=== PATIENT | female | born 1965 | race Caucasian/White ===

== ENCOUNTER 2024-11-04 19:23 | Emergency (ER) | payer MEDICAID, SELFPAY ==
[2024-11-04 19:24] VITALS: BMI 27.8
[2024-11-04 20:16] VITALS: BP 171/92; PULSE 102; RESP 18; TEMP 36.8; O2SAT 97
--- NOTE | 2024-11-04 20:24 | XR_ITS ---
Examination: PA chest single view FINDINGS: Upright PA chest single view Date and time: November 04, 20242052 hours INDICATIONS: Shortness of breath 2 days. FINDINGS: Mild opacity left base Normal heart size Right lung clear IMPRESSION: Atelectasis versus mild pneumonia left base, clinical correlation advised
--- NOTE | 2024-11-04 20:24 | XR_ITS ---
Examination: Venous duplex lower extremity sonogram, bilateral. Date and time of exam: November 04, 2024 2138 hours, INDICATIONS: swelling in the left leg 1 week, history left common femoral DVT occlusive on venous Doppler April 05, 2024 Technique: Multiple sonographic images of the deep venous system have been obtained. B-mode/2-D grayscale imaging of vascular structures and Doppler spectral analysis (waveforms) and color performed Both legs are examined. Findings: Negative right lower extremity system for DVT Positive for DVT involving the common femoral and superficial left greater saphenous veins IMPRESSION: Positive for DVT involving left common femoral and superficial left greater saphenous veins
--- NOTE | 2024-11-04 20:24 | EKG_ITS ---
[facility] Test Date: 2024-11-04 Pat Name: JARET TOLLIVER Department: Room: - Gender: Female Journal Clerk: : 1965 Requested By: Jace Palomo Order Number: [id number] Reading MD: Jace Palomo Measurements Intervals [place] Rate: 94 P: 62 CT: 141 QRS: 78 QRSD: 84 T: 51 QT: 353 QTc: 441 Interpretive Statements SINUS RHYTHM Compared to ECG 04/04/2024 23:42:58 Sinus tachycardia no longer present /store/S0/[id number].pdf
--- NOTE | 2024-11-04 20:29 | PD.EDEXREM ---
ED Extremity Problem RME/HPI General Chief complaint: Extremity Injury, Lower Stated complaint: L LEG PAIN AND SWELLING Time Seen by Provider: 11/04/24 20:24 Arrival date/time: 11/04/24 19:23 59F with history of drug use, HTN, COPD, MASH, CAD, DDD, and extensive occlusive DVT of LLE (s/p thrombectomy and IVC filter placed at [place]), presents to ED with 2 days of LLE pain and swelling. Patient also previously had a GI bleed episode where patient was switched from Xarelto to Eliquis. Patient ran out of Eliquis several months ago and has not been taking any because she didn't have access. Patient also expresses minimal SOB, but no worse than usual due to her COPD. Limitations: no limitations Related Data Previous Rx's ?Medication ?Instructions ?Recorded lisinopril 10 mg tablet 10 mg PO QDAY #30 tabs 12/02/23 apixaban 5 mg (74 tabs) tablets in 5 mg PO BID DVT #74 tabs 04/08/24 a dose pack (Eliquis DVT-PE Treat 30D Start) apixaban 5 mg (74 tabs) tablets in 5 mg PO BID #74 tabs 11/04/24 a dose pack (Eliquis DVT-PE Treat 30D Start) Allergies Allergy/AdvReac Type Severity Reaction Status Date / Time codeine Allergy Verified 11/04/24 19:29 fluoxetine (From Prozac) Allergy Verified 11/04/24 19:29 risperidone (From Risperdal) Allergy Verified 11/04/24 19:29 Review of Systems Review of Systems Systems Reviewed: All systems reviewed, normal except as documented Constitutional Constitutional: Reports system reviewed and no additional complaints, except as documented, Denies fever(s) and Denies headache(s) ENT Ears, Nose, Mouth, and Throat: Denies disequilibrium and Denies headache(s) Cardiovascular Cardiovascular: Reports system reviewed and no additional complaints, except as documented, Denies chest pain and Denies dyspnea Respiratory Respiratory: Reports system reviewed and no additional complaints, except as documented, Denies cough and Denies dyspnea Gastrointestinal Gastrointestinal: Reports system reviewed and no additional complaints, except as documented, Denies abdominal pain, Denies nausea and Denies vomiting Integumentary/Breasts Skin/Breast: Reports as per HPI and Reports skin swelling Neurologic Neurologic: Reports system reviewed and no additional complaints, except as documented, Denies confusion, Denies disequilibrium and Denies headache(s) Psychiatric Psychiatric: Denies confusion Past Medical History Past Medical History NEUROLOGIC: Positive Head Trauma; Negative Seizures CARDIAC: Positive Myocardial Infarction, Hypercholesterolemia and Hypertension; Negative Cardiac Disorders or Congestive Heart Failure RESPIRATORY: Positive Chronic Obstructive Pulmonary Disease (COPD) and Asthma GASTROINTESTINAL: Positive Gastrointestinal Disorders and Gastroesophageal Reflux Disease GENITOURINARY: Negative Renal Disease MUSCULOSKELETAL: Positive Musculoskeletal Disorders, Arthritis and Degenerative Disk Disease ENT: Positive Head Trauma ENDOCRINE: Positive Endocrine Disorders; Negative Diabetes Mellitus Type 1 or Diabetes Mellitus Type 2 HEMATOLOGIC: Negative Sickle Cell Disease OTHER HISTORY: Positive Blood Transfusions; Negative Blood Transfusion Reaction or Anesthesia Reactions Social History SMOKING STATUS: Current every day smoker SECOND HAND EXPOSURE: Yes ED Exam General Limitations: Present no limitations General appearance: Present alert and in no apparent distress Head Head exam: Present atraumatic Eye Eye exam: Present normal appearance, PERRL and EOMI ENT ENT exam: Present normal exam, normal oropharynx and mucous membranes moist Neck Neck exam: Present normal inspection, full ROM and trachea midline Chest Chest inspection: Present normal inspection and symmetric chest wall rise Respiratory Respiratory exam: Present normal lung sounds bilaterally Cardiovascular Cardiovascular exam: Present regular rate, normal rhythm and normal heart sounds Abdominal Exam Abdominal exam: Present soft and normal bowel sounds Extremities Exam Extremities exam: Present full ROM Expanded Lower Extremity Exam Hip/Pelvis exam: Present full ROM (L) and swelling Upper leg exam: Present full ROM and swelling Knee exam: Present full ROM and swelling Lower leg exam: Present full ROM and swelling Ankle exam: Present full ROM and swelling Back Exam Back exam: Present normal inspection and full ROM Neurological Exam Neurological exam: Present alert, oriented X3 and CN II-XII intact Psychiatric Psychiatric exam: Present normal affect and normal mood Skin Skin exam: Present warm, dry, intact and normal color Course Quality Measures none Orders Category Date Time Status EKG (ED ONLY) *Do not use* NOW Care 11/04/24 20:26 Completed EKG (ED Only) Stat Exams 11/04/24 20:24 Draft US venous doppler LE BI Stat Exams 11/04/24 20:24 Completed XR chest 1V portable Stat Exams 11/04/24 20:24 Completed BNP [B-Type Natriuretic Peptide] Stat Lab 11/04/24 21:10 Completed CBC Stat Lab 11/04/24 21:10 Completed CMP [Comprehensive Metabolic Panel] Stat Lab 11/04/24 21:10 Completed INR [Prothrombin Time with INR] Stat Lab 11/04/24 21:10 Completed PTT [Partial Thromboplastin Time] Stat Lab 11/04/24 21:10 Completed Troponin I Stat Lab 11/04/24 21:10 Completed Apixaban [Eliquis] Med 11/04/24 23:18 Discontinued 10 mg PO X1 ONE Vital Signs Vital signs: Vital Signs Temperature 98.3 F 11/04/24 20:16 Pulse Rate 102 H 11/04/24 20:16 Respiratory Rate 18 11/04/24 20:16 Blood Pressure 171/92 H 11/04/24 20:16 Pulse Oximetry (%) 97 11/04/24 20:16 Oxygen Delivery Method Room Air 11/04/24 20:16 O2 at 97% on RA and WNLs Extremity Problem MDM Narrative MDM Narrative:: 59F with history of drug use, HTN, COPD, MASH, CAD, DDD, and extensive occlusive DVT of LLE (s/p thrombectomy and IVC filter placed at [place]), presents to ED with 2 days of LLE pain and swelling. Patient also previously had a GI bleed episode where patient was switched from Xarelto to Eliquis. Patient ran out of Eliquis several months ago and has not been taking any because she didn't have access. Patient also expresses minimal SOB, but no worse than usual due to her COPD. Physical exam reveals normal WOB and clear lungs. Mildly swollen LLE. Some swelling around pelvic area around skin. Patient is afebrile, calm, and alert. EKG is NSR. CXR possible PNA, but patient denies cough. Normal trop and BNP. CBC unremarkable. CMP unremarkable. Coags normal. US 2 DVTs on LLE. Meds given. Patient data External records reviewed:: [facility] previous records Clinical information provided by:: patient Social determinants that could affect healthcare access:: alcohol use Patient has the following chronic illnesses:: drug use, HTN, COPD, MASH, CAD, DDD, and extensive occlusive DVT of LLE How is presenting disease/condition affected by chronic disease/condition?: caused by Evaluation data The following diagnostics were reviewed and interpreted by me:: lab results, radiology exam(s) and EKG tracing(s) Lab and/or radiology exams considered but not ordered:: ordered Interpretation Summary: above Medications / Prescriptions Medications or Prescriptions considered but not ordered:: ordered Medication administrations:: Medication Administration History Discontinued Medications Apixaban (Apixaban 2.5 Mg Tablet) 10 mg PO X1 ONE Stop: 11/04/24 23:19 Last Admin: 11/04/24 23:39 Dose: 10 mg Documented By: RADHA above Consultations Consultation(s) initiated? (list below): No Diagnosis Extremity Problem Differential Diagnosis: herpes zoster, gout, cellulitis, superficial thrombophlebitis, deep venous thrombosis of upper extremity, lower extremity edema and deep vein thrombosis of lower extremity Most likely diagnosis given after review of the tests above:: DVT Admission Indicated Admission indicated?: not indicated Admission Request Was there a request for admission?: No Disposition Plan Disposition Plan: Discharge Discharge Attestation Discharge Attestation: The patient and all family members were given an opportunity to ask questions and understood the discharge instructions. Discharge instructions specifically effects, indications for sooner follow up or return to the emergency department, and the expected course of current diagnosis. Patient condition: Stable Discharge Plan Plan Patient Disposition: HOME (Self Care) Discharge Disposition comment: Stable Prescriptions/Referrals Prescriptions/Med Rec: New Eliquis DVT-PE Treat 30D Start 5 mg (74 tabs) tablets,dose pack 5 mg PO BID Qty: 74 0RF Rx Instructions: 10 mg twice daily for 7 days followed by 5 mg twice daily. No Action lisinopril 10 mg tablet 10 mg PO QDAY Qty: 30 0RF Eliquis DVT-PE Treat 30D Start 5 mg (74 tabs) tablets,dose pack 5 mg PO BID Qty: 74 0RF Rx Instructions: ELIQUIS 10 mg PO twice daily for the first 7 days of therapy. After 7 days recommended dose is 5 mg taken orally twice daily. Referrals: No Primary/Family,Physician [Primary Care Provider] - In 1 week Problem List Clinical Impression: DVT (deep venous thrombosis) Patient/Caregiver Discharge Instructions Education Materials: ED Deep Vein Thrombosis (DVT) Additional Instructions: Please follow-up with PCP within 24-48 hours and return immediately if symptoms worsen. Print Language: Rwandan Stand Alone Forms: Patient Portal Info Letter SONU/YOHANNES Supervising Physician SONU/YOHANNES Supervising Physician: Dr. Galindo
[2024-11-04 21:38] LABS: Basophils # (Auto) 0.1 Thou/mm3 (0.0-0.2); Basophils % (Auto) 1 % (0-2.5); Eosinophils # (Auto) 0.2 Thou/mm3 (0.0-0.5); Eosinophils % (Auto) 2 % (0-10); Hematocrit 42.9 % (36.0-46.0); Immature Granulocytes % (Auto) 1 % (0-0); Immature Granulocytes Auto 0.08 Thou/mm3 (0.00-0.00); Lymphocytes # (Auto) 2.5 Thou/mm3 (1.0-4.8); Lymphocytes % (Auto) 30 % (10-50); Mean Corpuscular HGB Conc 32.6 g/dl (31.0-37.0); Mean Corpuscular Hemoglobin 29.5 pg (25.0-35.0); Mean Corpuscular Volume 91 fL (80-100); Monocytes # (Auto) 0.8 Thou/mm3 (0.0-0.8); Monocytes % (Auto) 9 % (0-12); Neutrophils # (Auto) 4.7 Thou/mm3 (1.8-7.7); Neutrophils % (Auto) 57 % (37-80); Nucleated Red Blood Cell % 0 /100 WBC (0); Platelet Count 297 Thou/mm3 (140-440); RDW Standard Deviation 43.7 fL (36.4-46.3); Red Blood Count 4.74 Miln/mm3 (4.00-5.20); White Blood Count 8.3 Thou/mm3 (3.6-11.0)
[2024-11-04 21:54] LABS: Partial Thromboplastin Time 24.3 Seconds (22.0-36.0); Prothrombin Time 10.9 Seconds (9.0-12.2)
[2024-11-04 21:57] LABS: B-Type Natriuretic Peptide 43 pg/mL (0-100)
[2024-11-04 21:58] LABS: Alanine Aminotransferase 13 U/L (10-49); Albumin, Serum 4.4 gm/dL (3.4-4.8); Albumin/Globulin Ratio 1.6 (1.2-2.2); Alkaline Phosphatase 102 U/L (46-116); Anion Gap 10 (7-16); BUN/Creatinine Ratio 13 Ratio (12-20); Bilirubin,Total 0.3 mg/dL (0.3-1.2); Blood Urea Nitrogen 10 mg/dL (9-23); Calcium 9.3 mg/dL (8.3-10.6); Calcium (Corrected) 9.3 mg/dL (8.5-10.1); Carbon Dioxide 27.3 mMol/L (20.0-31.0); Chloride 108 mMol/L (98-107); Creatinine (Component) 0.8 mg/dL (0.6-1.3); Estimated Creatinine Clearance 70.7 mL/min (>60); Globulin 2.8 gm/dL (2.3-3.5); Glucose 83 mg/dL (74-106); Osmolality,Calculated 286 (275-295); Potassium 3.8 mMol/L (3.4-5.1); Sodium 145 mMol/L (136-145); Total Protein 7.2 gm/dL (5.7-8.2); Troponin I < 0.002 ng/mL (0.0-0.045); eGFR > 60 See Note
[2024-11-04 22:15] VITALS: BP 174/114; BP 175/117; PULSE 95; RESP 20; TEMP 36.6; O2SAT 99
[2024-11-04] MEDS: APIXABAN 2.5 MG TABLET 10 MG PO (23:39)
[2024-11-05 00:24] VITALS: BP 137/82; PULSE 78
== END 2024-11-05 00:25 | disposition home or self-care (01) ==
PROVIDERS: Physician Assistant; Emergency Provider Emergency Medicine
DX: I82.412 Acute embolism and thrombosis of left femoral vein (principal); I82.812 Embolism and thrombosis of superficial veins of left lower extremity; R06.02 Shortness of breath; M79.89 Other specified soft tissue disorders; I10 Essential (primary) hypertension; I25.10 Atherosclerotic heart disease of native coronary artery without angina pectoris; F17.210 Nicotine dependence, cigarettes, uncomplicated; E78.00 Pure hypercholesterolemia, unspecified; I25.2 Old myocardial infarction
CPT/HCPCS: 36415; 71045; 80053; 83880; 84484; 85025; 85610; 85730; 93005; 93970; 99284; A9270

== ENCOUNTER 2025-05-23 02:06 | Observation (INO) | payer MEDICAID, SELFPAY ==
[2025-05-23] VITALS (11 sets, daily range): BP systolic 106–132; BP diastolic 59–88; PULSE 18–108; RESP 16–99; TEMP 36.1–37.1; O2SAT 94–100; BMI 26.0
--- NOTE | 2025-05-23 02:21 | XR_ITS ---
Examination: Duplex scan of the lower extremity, unilateral left Date and time of exam: 05/23/2025 at 3:27 a.m. CLINICAL HISTORY: Previous history of venous clots, now edema, history of liver cancer, pain Technique: Duplex scan of the extremity veins using B-mode/grayscale imaging and Doppler spectral analysis and color flow Attention is directed to internal echogenicity, compression and augmentation involving these veins, color flow assessment, spectral analysis Findings: The left femoral vein and saphenous vein are slightly swollen and show no compressibility, and no augmentation echogenic thrombi are seen within these veins The popliteal vein likewise shows no compressibility or augmentation, echogenic thrombi are seen, and the vein is slightly swollen. The posterior tibial vein does show compressibility but there is no augmentation and echogenic thrombi are noted. Impression: 1. This study is positive for widespread, extensive deep venous thrombophlebitis throughout most of the deep venous system in the left lower extremity.
--- NOTE | 2025-05-23 02:33 | PD.EDRME ---
Rapid Medical Screening Exam RME Arrival date/time: 05/23/25 02:06 This is a case of 59-year-old female with history of drug use, HTN, COPD, MASH, CAD, DDD, and extensive occlusive DVT of LLE (s/p thrombectomy and IVC filter placed at [place] came in in the emergency room due to left lower extremity pain and swelling patient is out of his blood thinner worsening of the symptoms this patient decided to start consult her in the emergency room Chief Complaint: Extremity Problem,Nontraumatic Time Seen by Provider: 05/23/25 02:21 Vital signs: Vital Signs Temperature 98.3 F 05/23/25 02:25 Pulse Rate 108 H 05/23/25 02:25 Respiratory Rate 19 05/23/25 02:25 Blood Pressure 116/79 05/23/25 02:25 Pulse Oximetry (%) 96 05/23/25 02:25 Oxygen Delivery Method Room Air 05/23/25 02:25 Exam: Moderate tenderness on the left lower extremities with mild swelling no calf tenderness negative Coronel signs negative Homans signs Clinical Impression: Left lower extremity pain rule out DVT
[2025-05-23 03:41] LABS: Basophils # (Auto) 0.1 Thou/mm3 (0.0-0.2); Basophils % (Auto) 1 % (0-2.5); Eosinophils # (Auto) 0.2 Thou/mm3 (0.0-0.5); Eosinophils % (Auto) 2 % (0-10); Hematocrit 39.7 % (36.0-46.0); Hemoglobin 12.7 g/dL (12.0-16.0); Immature Granulocytes Auto 0.06 Thou/mm3 (0.00-0.00); Lymphocytes # (Auto) 2.4 Thou/mm3 (1.0-4.8); Lymphocytes % (Auto) 22 % (10-50); Mean Corpuscular HGB Conc 32.0 g/dl (31.0-37.0); Mean Corpuscular Hemoglobin 29.0 pg (25.0-35.0); Mean Corpuscular Volume 91 fL (80-100); Monocytes # (Auto) 1.2 Thou/mm3 (0.0-0.8); Monocytes % (Auto) 11 % (0-12); Neutrophils # (Auto) 6.8 Thou/mm3 (1.8-7.7); Neutrophils % (Auto) 63 % (37-80); Nucleated Red Blood Cell # 0.00 Thou/mm3 (0.00-0.00); Nucleated Red Blood Cell % 0 /100 WBC (0); Platelet Count 213 Thou/mm3 (140-440); RDW Standard Deviation 44.3 fL (36.4-46.3); Red Blood Count 4.38 Miln/mm3 (4.00-5.20); White Blood Count 10.8 Thou/mm3 (3.6-11.0)
[2025-05-23 03:59] LABS: INR 1.0 (0.9-1.3); Partial Thromboplastin Time 25.3 Seconds (22.0-36.0); Prothrombin Time 11.0 Seconds (9.0-12.2)
[2025-05-23 04:13] LABS: Alanine Aminotransferase 8 U/L (10-49); Albumin, Serum 4.4 gm/dL (3.4-4.8); Albumin/Globulin Ratio 1.5 (1.2-2.2); Alkaline Phosphatase 89 U/L (46-116); Anion Gap 9 (7-16); Aspartate Amino Transferase 13 U/L (0-34); BUN/Creatinine Ratio 16 Ratio (12-20); Bilirubin,Total 0.5 mg/dL (0.3-1.2); Blood Urea Nitrogen 14 mg/dL (9-23); Calcium 9.2 mg/dL (8.3-10.6); Calcium (Corrected) 9.2 mg/dL (8.5-10.1); Carbon Dioxide 29.4 mMol/L (20.0-31.0); Chloride 106 mMol/L (98-107); Creatinine (Component) 0.9 mg/dL (0.6-1.3); Estimated Creatinine Clearance 61.0 mL/min (>60); Globulin 2.9 gm/dL (2.3-3.5); Glucose 107 mg/dL (74-106); Osmolality,Calculated 287 (275-295); Potassium 3.6 mMol/L (3.4-5.1); Sodium 144 mMol/L (136-145); Total Protein 7.3 gm/dL (5.7-8.2); eGFR > 60 See Note
--- NOTE | 2025-05-23 04:25 | PD.EDEXREM ---
ED Extremity Problem RME/HPI General Chief complaint: Extremity Problem,Nontraumatic Stated complaint: BLOOD CLOTS TO LEFT LEG Time Seen by Provider: 05/23/25 02:21 Arrival date/time: 05/23/25 02:06 Rapid Medical Screening Exam [facility] Arrival date/time: 05/23/25 02:06 This is a case of 59-year-old female with history of drug use, HTN, COPD, MASH, CAD, DDD, and extensive occlusive DVT of LLE (s/p thrombectomy and IVC filter placed at [place] came in in the emergency room due to left lower extremity pain and swelling patient is out of his blood thinner worsening of the symptoms this patient decided to start consult her in the emergency room Limitations: no limitations RME / HPI RME / HPI Narrative: 05/23/25 02:06 This is a case of 59-year-old female with history of drug use, HTN, COPD, MASH, CAD, DDD, and extensive occlusive DVT of LLE (s/p thrombectomy and IVC filter placed at [place] came in in the emergency room due to left lower extremity pain and swelling patient is out of his blood thinner worsening of the symptoms this patient decided to start consult her in the emergency room Exam: Moderate tenderness on the left lower extremities with mild swelling no calf tenderness negative Coronel signs negative Homans signs Impression: Left lower extremity pain rule out DVT Related Data Previous Rx's ?Medication ?Instructions ?Recorded lisinopril 10 mg tablet 10 mg PO QDAY #30 tabs 12/02/23 apixaban 5 mg (74 tabs) tablets in 5 mg PO BID DVT #74 tabs 04/08/24 a dose pack (Eliquis DVT-PE Treat 30D Start) apixaban 5 mg (74 tabs) tablets in 5 mg PO BID #74 tabs 11/04/24 a dose pack (Eliquis DVT-PE Treat 30D Start) Allergies Allergy/AdvReac Type Severity Reaction Status Date / Time bee venom protein (honey bee) Allergy Difficulty Verified 05/23/25 02:06 Breathing codeine Allergy Verified 05/23/25 02:06 fluoxetine (From Prozac) Allergy Verified 05/23/25 02:06 risperidone (From Risperdal) Allergy Verified 05/23/25 02:06 Review of Systems Review of Systems Systems Reviewed: All systems reviewed, normal except as documented Constitutional Constitutional: Reports system reviewed and no additional complaints, except as documented and Reports as per HPI Cardiovascular Cardiovascular: Reports system reviewed and no additional complaints, except as documented and Reports as per HPI Respiratory Respiratory: Reports system reviewed and no additional complaints, except as documented and Reports as per HPI Gastrointestinal Gastrointestinal: Reports system reviewed and no additional complaints, except as documented and Reports as per HPI Musculoskeletal Musculoskeletal: Reports system reviewed and no additional complaints, except as documented and Reports as per HPI Neurologic Neurologic: Reports system reviewed and no additional complaints, except as documented and Reports as per HPI Past Medical History Past Medical History NEUROLOGIC: Positive Head Trauma; Negative Seizures CARDIAC: Positive Myocardial Infarction, Hypercholesterolemia and Hypertension; Negative Cardiac Disorders or Congestive Heart Failure RESPIRATORY: Positive Chronic Obstructive Pulmonary Disease (COPD) and Asthma GASTROINTESTINAL: Positive Gastrointestinal Disorders and Gastroesophageal Reflux Disease GENITOURINARY: Negative Renal Disease MUSCULOSKELETAL: Positive Musculoskeletal Disorders, Arthritis and Degenerative Disk Disease ENT: Positive Head Trauma ENDOCRINE: Positive Endocrine Disorders; Negative Diabetes Mellitus Type 1 or Diabetes Mellitus Type 2 HEMATOLOGIC: Negative Sickle Cell Disease OTHER HISTORY: Positive Blood Transfusions; Negative Blood Transfusion Reaction or Anesthesia Reactions Social History SMOKING STATUS: Current every day smoker SECOND HAND EXPOSURE: Yes ED Exam General Limitations: Present no limitations General appearance: Present alert, in no apparent distress and other (Patient is awake alert oriented not in distress nontoxic looking well-hydrated well nourisehed) Head Head exam: Present atraumatic, normocephalic and normal inspection Eye Eye exam: Present normal appearance, PERRL and EOMI ENT ENT exam: Present normal exam, normal oropharynx and mucous membranes moist Neck Neck exam: Present normal inspection, full ROM and trachea midline Chest Chest inspection: Present normal inspection and symmetric chest wall rise Respiratory Respiratory exam: Present normal lung sounds bilaterally; Absent respiratory distress, wheezes, stridor, accessory muscle use or prolonged expiratory phase Cardiovascular Cardiovascular exam: Present regular rate, normal rhythm and normal heart sounds; Absent bradycardia, tachycardia, irregular rhythm, systolic murmur or diastolic murmur Abdominal Exam Abdominal exam: Present soft and normal bowel sounds; Absent distention, tenderness, guarding, rebound, rigidity, diminished bowel sounds, hyperactive bowel sounds, hypoactive bowel sounds or organomegaly Extremities Exam Extremities exam: Present normal inspection and full ROM Expanded Lower Extremity Exam Lower leg exam: Present tenderness, swelling, Achilles tendon intact and other (Positive calf tenderness negative Coronel sign ROM is limited due to pain pulses are full and equal capillary refill less than 2 seconds sensory intact); Absent abrasion, laceration, ecchymosis, deformity, crepitus, dislocation, erythema, palpable cord or Homans' sign Back Exam Back exam: Present normal inspection and full ROM Neurological Exam Neurological exam: Present alert, oriented X3, CN II-XII intact, normal gait (Unable to examine gait due to pain on the left lower extremety) and reflexes normal; Absent motor sensory deficit Psychiatric Psychiatric exam: Present normal affect and normal mood Skin Skin exam: Present warm, dry, intact and normal color Course Quality Measures VTE prophylaxis Orders Category Date Time Status COVID-19 Screening Questionnaire NOW Care 05/23/25 04:24 Active Decision to Admit X1 Care 05/23/25 04:23 Active US venous doppler LE LT Stat Exams 05/23/25 02:21 Taken CBC Stat Lab 05/23/25 03:00 Completed CMP [Comprehensive Metabolic Panel] Stat Lab 05/23/25 03:00 Completed PTT [Partial Thromboplastin Time] Stat Lab 05/23/25 03:00 Completed Prothrombin Time with INR Stat Lab 05/23/25 03:00 Completed Vital Signs Vital signs: Vital Signs Temperature 98.3 F 05/23/25 02:25 Pulse Rate 108 H 05/23/25 02:25 Respiratory Rate 19 05/23/25 02:25 Blood Pressure 116/79 05/23/25 02:25 Pulse Oximetry (%) 96 05/23/25 02:25 Oxygen Delivery Method Room Air 05/23/25 02:25 Oxygen saturation is 96% in room air Extremity Problem MDM Narrative MDM Narrative:: 05/23/25 02:06 This is a case of 59-year-old female with history of drug use, HTN, COPD, MASH, CAD, DDD, and extensive occlusive DVT of LLE (s/p thrombectomy and IVC filter placed at [place] came in in the emergency room due to left lower extremity pain and swelling patient is out of his blood thinner worsening of the symptoms this patient decided to start consult her in the emergency room physical examination patient is awake alert oriented not in distress nontoxic looking well-hydrated well-nourished noted tenderness on the left lower extremities with mild swelling negative Coronel signs negative Homans signs positive calf tenderness ROM is limited due to pain pulses were full and equal capillary refill less than 2 seconds sensory is intact patient Doppler exam was positive for DVT still pending lab test I spoke to Dr. Newton discussed patient condition history and physical examination and agreed that the patient need to be admitted for blood thinner treatment and pain control patient agreed with the treatment plan and admit Patient data External records reviewed:: [facility] previous records Clinical information provided by:: patient Social determinants that could affect healthcare access:: none Patient has the following chronic illnesses:: None How is presenting disease/condition affected by chronic disease/condition?: no chronic disease Evaluation data The following diagnostics were reviewed and interpreted by me:: lab results and radiology exam(s) Lab and/or radiology exams considered but not ordered:: Reviewed Interpretation Summary: Reviewed Medications / Prescriptions Medications or Prescriptions considered but not ordered:: Given Medication administrations:: Given Consultations Consultation(s) initiated? (list below): Yes Consultation #1 (Physician, Specialty, Details): Dr. Newton agreed that the patient need to be admitted for further treatment and evaluation of DVT and pain control Diagnosis Extremity Problem Differential Diagnosis: deep vein thrombosis of lower extremity Most likely diagnosis given after review of the tests above:: DVT Admission Indicated Admission indicated?: indicated Explain why admission is indicated or not indicated:: DVT Admission Request Was there a request for admission?: Yes Admission Attestation Admission request attestation: Discussed case with [] from Hospitalist service regarding admission. Discussed patients ED course, exam findings, labs, and radiology results. The Hospitalist [agrees,declines] to accept the patient for admission. Disposition Plan Disposition Plan: Admit Discharge Plan Plan Patient Disposition: HOME (Self Care) Patient condition on transfer: Stable Prescriptions/Referrals Prescriptions/Med Rec: No Action Eliquis DVT-PE Treat 30D Start 5 mg (74 tabs) tablets,dose pack 5 mg PO BID Qty: 74 0RF Rx Instructions: 10 mg twice daily for 7 days followed by 5 mg twice daily. lisinopril 10 mg tablet 10 mg PO QDAY Qty: 30 0RF Eliquis DVT-PE Treat 30D Start 5 mg (74 tabs) tablets,dose pack 5 mg PO BID Qty: 74 0RF Rx Instructions: ELIQUIS 10 mg PO twice daily for the first 7 days of therapy. After 7 days recommended dose is 5 mg taken orally twice daily. Referrals: No Primary/Family,Physician [Primary Care Provider] - In 1 week Problem List Clinical Impression: DVT (deep venous thrombosis) Patient/Caregiver Discharge Instructions Education Materials: DVT Dc Print Language: Latvian Stand Alone Forms: [facility] Award Info., Patient Portal Info Letter PA/TRASH TRUCK DRIVER Supervising Physician PA/TRASH TRUCK DRIVER Supervising Physician: Dr. Galindo
--- NOTE | 2025-05-23 04:35 | PRELIM_ITS ---
Left lower extremity venous Doppler ultrasound Clinical history: DVT. Findings: Cantu scale, color flow and spectral Doppler evaluation of the left lower extremity deep veins were performed. The greater saphenous, common femoral, femoral, and popliteal veins are noncompressible with internal echoes. Minimal Doppler flow. The posterior tibial vein is compressible with minimal flow. The peroneal vein is compressible with normal Doppler flow. Impression: Mostly occlusive thrombosis of the greater saphenous, common femoral, femoral and popliteal veins. Possible thrombosis of the posterior tibial vein. Discussion Details: Results verbally communicated to : Dr. Galindo at 04:26 AM 05/23/2025 Report Electronically Signed By: Albaro Osborn 05/23/2025 4:35:14 AM [EST]
--- NOTE | 2025-05-23 04:37 | PD.RESHP ---
Documentation for date of: 05/23/25 HPI History of Present Illness Chief complaint: LLE pain and swelling History of present illness: 59-year-old female with past medical history of hypertension, COPD, MASH, personal history of MO, degenerative disc disease with multiple surgeries in the past and extensive occlusive DVT of left leg s/p thrombectomy, IVC filter and on Eliquis came into the ED due to worsening LLE swelling and pain. Patient stated that she ran out of Eliquis about 2 months ago and could not find a PCP to get her prescription refilled. She mentioned that for the past month her pain has worsened and today she decided to seek medical attention given that her pain was too severe. She mentions she still smokes and that in the past she has been admitted and placed on heparin drip Patient otherwise has no other complaints at this time and denies any chest pain or SOB. No pain with calf palpation or with foot movement, able to walk (with slight limp), and peripheral pulses present ED course: Initially normotensive and febrile. Initial labs were unremarkable. Lower extremity Doppler positive for DVT. PMH: As above Social Hx: Admits smoking, denies any drinking or illicit drugs Surgical Hx: IVC filter placement Review of Systems Review of Systems Systems Reviewed: All systems reviewed, normal except as documented Past Medical History Past Medical History NEUROLOGIC: Positive Head Trauma; Negative Seizures CARDIAC: Positive Myocardial Infarction, Hypercholesterolemia and Hypertension; Negative Cardiac Disorders or Congestive Heart Failure RESPIRATORY: Positive Chronic Obstructive Pulmonary Disease (COPD) and Asthma GASTROINTESTINAL: Positive Gastrointestinal Disorders and Gastroesophageal Reflux Disease GENITOURINARY: Negative Renal Disease MUSCULOSKELETAL: Positive Musculoskeletal Disorders, Arthritis and Degenerative Disk Disease ENT: Positive Head Trauma ENDOCRINE: Positive Endocrine Disorders; Negative Diabetes Mellitus Type 1 or Diabetes Mellitus Type 2 HEMATOLOGIC: Negative Sickle Cell Disease OTHER HISTORY: Positive Blood Transfusions; Negative Blood Transfusion Reaction or Anesthesia Reactions Social History SMOKING STATUS: Current every day smoker SECOND HAND EXPOSURE: Yes Exam Vital Signs Temp Pulse Resp BP Pulse Ox O2 Del Method 98.3 F 108 H 19 116/79 96 Room Air 05/23/25 02:05/23/25 02:05/23/25 02:25 05/23/25 02:25 05/23/25 02:05/23/25 02:25 Narrative Exam Gen: A&O X 3, NAD HEENT: NCAT, EOMI, Pupils reactive ABI, not icteric. External ears normal. No rhinorrhea. Moist mucous membranes. Neck: Supple, full range of motion, no observable masses, No meningeal sign. Lungs: No Respiratory distress, mild wheezing bilateral. CV: RRR, no murmurs. Abdomen: Soft, nondistended, No rebound tenderness, abdominal mass about 4 cm, nontender and laterally to umbillicus on R side. MSK: No joint swelling, no redness, peripheral pulses presents, LLE welling and pain in the calf area. L foot with purplish discoloration, but good peripheral pulse. Skin: No rashes, petechiae, lesions. Neuro: No focal neurological deficits appreciated, sensory and motor intact. Psych: Cooperative, appropriate mood and effect. Results: Labs 05/23/25 05:01 05/23/25 03:00 Labs: Short CBC 05/23/25 Range/Units 03:00 WBC 10.8 (3.6-11.0) Thou/mm3 Hgb 12.7 (12.0-16.0) g/dL Hct 39.7 (36.0-46.0) % Plt Count 213 (140-440) Thou/mm3 BMP 05/23/25 03:00 Sodium 144 Potassium 3.6 Chloride 106 Carbon Dioxide 29.4 BUN 14 Creatinine 0.9 Glucose 107 H Calcium 9.2 Liver Function 05/23/25 Range/Units 03:00 Total Bilirubin 0.5 (0.3-1.2) mg/dL AST 13 (0-34) U/L ALT 8 L (10-49) U/L Alkaline Phosphatase 89 (46-116) U/L Albumin 4.4 (3.4-4.8) gm/dL Quality Measures Quality Measures VTE prophylaxis Medications Home Medications and Allergies Allergies Allergy/AdvReac Type Severity Reaction Status Date / Time bee venom protein (honey bee) Allergy Difficulty Verified 05/23/25 02:06 Breathing codeine Allergy Verified 05/23/25 02:06 fluoxetine (From Prozac) Allergy Verified 05/23/25 02:06 risperidone (From Risperdal) Allergy Verified 05/23/25 02:06 Visit Medications Acetaminophen (Acetaminophen 325 Mg Tablet) 650 mg PO Q6H PRN PRN Reason: Fever >100.4 and mild pain 1-3 Stop: 06/22/25 04:24 Hydrocodone Bitart/Acetaminophen (Hydrocodone/Apap 5/325 Tablet) 1 tab PO Q4HR PRN PRN Reason: PAIN SCALE 4-10(Mod-Sev Stop: 05/28/25 04:24 Heparin Sodium (Porcine) (Heparin Sod Inj 5000 Unit/Ml Vial) 5,350 unit 80 unit/kg (5350 unit) IV X1 ONE; Protocol Stop: 05/23/25 04:26 Heparin Sodium/Dextrose (Heparin In D5w Ivpb) 25,000 unit in 250 mls @ 12.002 mls/hr IV .[id number] [facility]; Protocol Stop: 06/06/25 04:29 Ondansetron HCl (Ondansetron Inj 2 Mg/Ml Inj 2 Ml) 4 mg IVP Q6H PRN; Protocol PRN Reason: NAUSEA OR VOMITING Stop: 06/22/25 04:24 Assessment & Plan Plan 59-year-old female with past medical history of hypertension, COPD, MASH, personal history of MO, degenerative disc disease with multiple surgeries in the past and extensive occlusive DVT of left leg s/p IVC filter and on Eliquis was placed on observation on 05/23/2025 due to left lower extremity DVT. #Left lower extremity DVT #Hx of DVT s/p thrombectomy, IVC filter and on Eliquis Patient has not been taking her Eliquis for the past 2 months as she ran out and did not have a primary care physician to prescribe her a refill. She does mention that she has had lower extremity swelling and pain which has been increasing over time and today was unbearable to her foot she decided to come into the ED. Patient is lower extremity Doppler was positive for DVT Patient is still a smoker Plan: Start patient on heparin drip Transition to Eliquis after 24 hours Follow-up on morning CBC to rule out any drop in hemoglobin. #Abdominal mass Patient has a 4 cm abdominal mass just laterally to the umbilicus on the right side which she states that has been there for the past few months and has been slowly increasing. She denies it being painful. Patient does have a history of smoking therefore could be malignancy versus less likely hernia Plan: Consider abdominal CT versus ultrasound of the abdomen Follow up outpatient to r/o malignancy Disposition: Patient observation to med surg. Diet: regular GI prophylaxis: not indicated DVT prophylaxis: heparin drip Code: Full Case disclosed with Attending Dr. Aman Glass PGY2 Disclaimer: Even though this this note was dictated by speech recognition and even though it was carefully revised there may still be minor errors in broom maker due to voice recognition software. Attending Provider Attestation/Addendum I, Jillian Newton DO, attest that I was physically present for the guillen portions of the service and evaluated the patient with the resident and I reviewed and discussed the case with the resident and agree with the resident's findings and plans of care as documented above Patient is a 59-year-old female past medical history of hypertension, COPD, DVT status post thrombectomy and IVC filter placement, GI bleed who presented to the ED due to worsening pain in her left leg. Patient states that she has been lost to follow-up and unable to refill her Eliquis outpatient since the local clinic has close down in [place]. Patient has been off Eliquis for at least 3 to 4 months. There is a previous visit from October during which she had medications refilled. Patient endorses having trouble ambulating due to the pain. She describes the pain as a charley horse that radiates from her left inguinal region down to her left popliteal region. Left calf is tender to palpation and mildly edematous. Left foot appears to be purple, but warm and nontender to palpation. Ultrasound was done in the ED and preliminary read shows noncompressible echoes of left common femoral vein to popliteal vein with minimal blood flow. Will follow-up with official report. However, due to concern of discoloration of left foot and pain limiting patient's ability to ambulate, will observe patient on med/tele for further workup and medical management of DVT. Will start patient on heparin drip and monitor hemoglobin closely. If lack of improvement, will consider consulting cardiology for thrombectomy. Pain control as needed. Patient otherwise denies any shortness of breath.
[2025-05-23] MEDS: HYDROcodone/APAP 5/325 TABLET 1 TAB PO ×3 (05:10→19:10)
[2025-05-23 05:19] LABS: Basophils # (Auto) 0.1 Thou/mm3 (0.0-0.2); Basophils % (Auto) 1 % (0-2.5); Eosinophils # (Auto) 0.2 Thou/mm3 (0.0-0.5); Eosinophils % (Auto) 2 % (0-10); Hematocrit 37.8 % (36.0-46.0); Hemoglobin 12.2 g/dL (12.0-16.0); Immature Granulocytes Auto 0.05 Thou/mm3 (0.00-0.00); Lymphocytes # (Auto) 2.2 Thou/mm3 (1.0-4.8); Lymphocytes % (Auto) 20 % (10-50); Mean Corpuscular HGB Conc 32.3 g/dl (31.0-37.0); Mean Corpuscular Hemoglobin 29.0 pg (25.0-35.0); Mean Corpuscular Volume 90 fL (80-100); Monocytes # (Auto) 1.2 Thou/mm3 (0.0-0.8); Monocytes % (Auto) 11 % (0-12); Neutrophils # (Auto) 7.0 Thou/mm3 (1.8-7.7); Neutrophils % (Auto) 65 % (37-80); Nucleated Red Blood Cell # 0.00 Thou/mm3 (0.00-0.00); Nucleated Red Blood Cell % 0 /100 WBC (0); Platelet Count 217 Thou/mm3 (140-440); RDW Standard Deviation 44.0 fL (36.4-46.3); Red Blood Count 4.21 Miln/mm3 (4.00-5.20); White Blood Count 10.8 Thou/mm3 (3.6-11.0)
[2025-05-23] MEDS: Heparin/D5w 25K 250 ML Ivpb 25,000 UNIT/250 ML BAG 12.002 UNIT IV (05:24)
[2025-05-23] MEDS: HEPARIN SOD INJ 5000 UNIT/ML VIAL 5400 UNIT IV (05:26)
[2025-05-23 05:51] LABS: Alanine Aminotransferase 7 U/L (10-49); Albumin, Serum 4.4 gm/dL (3.4-4.8); Albumin/Globulin Ratio 1.5 (1.2-2.2); Alkaline Phosphatase 88 U/L (46-116); Anion Gap 11 (7-16); Aspartate Amino Transferase 13 U/L (0-34); BUN/Creatinine Ratio 18 Ratio (12-20); Bilirubin,Total 0.4 mg/dL (0.3-1.2); Blood Urea Nitrogen 14 mg/dL (9-23); Calcium 9.1 mg/dL (8.3-10.6); Calcium (Corrected) 9.1 mg/dL (8.5-10.1); Carbon Dioxide 25.3 mMol/L (20.0-31.0); Chloride 107 mMol/L (98-107); Creatinine (Component) 0.8 mg/dL (0.6-1.3); Estimated Creatinine Clearance 68.6 mL/min (>60); Globulin 2.9 gm/dL (2.3-3.5); Glucose 107 mg/dL (74-106); Magnesium 1.6 mg/dL (1.6-2.6); Osmolality,Calculated 285 (275-295); Potassium 3.7 mMol/L (3.4-5.1); Sodium 143 mMol/L (136-145); Total Protein 7.3 gm/dL (5.7-8.2); eGFR > 60 See Note
--- NOTE | 2025-05-23 07:10 | PC.NURSE ---
Pt. here from home to room 10, Dr. Madden and Dr. Montoya in room talking with pt. Pt. has a left swollen red leg and left swollen red foot. Pt. redness goes up pt.'s left leg to her left hip. Pt. states she has a filter in her right groin/right hip. Pt. states she has no primary Doctor and ran out of her Eliquis. Pt. states she had a thrombectomy in 2023, in [place]. Pt. states all her kids are coming home for [place] and it's the first time in a long time so patient states to the Doctor's she wants to be home by [place]. Dr. Madden stated to be NPO for now, pt. states ok, pt. states she does still smoke cigarettes, pt. pulses in feet are equal and strong. Pt. states she's comfortable at this time and wants to sleep.
--- NOTE | 2025-05-23 09:28 | PD.RESPRO ---
Documentation for date of: 05/23/25 Subjective Subjective Interval history: Patient seen and examined at bedside; no acute events overnight. Patient has not had eliquis for 2 months and has no primary care to get new prescription from. Pain in LLE better. Cardiology states no thrombectomy at this time. Also has hard periumbilical mass that was palpated. Exam Vital Signs Temp Pulse Resp BP Pulse Ox O2 Del Method 98.7 F 95 18 111/70 98 Room Air 05/23/25 07:10 05/23/25 07:10 05/23/25 07:10 05/23/25 07:10 05/23/25 07:10 05/23/25 07:10 Narrative Exam General: A/O x3, no acute distress, well-nourished, well-developed Eyes: PERRL, EOMI. Anicteric, vision grossly intact. Ears: No ear pain, no ear discharge, Hearing grossly intact. Nose: No nasal discharge. Mouth/Throat: Moist mucous membranes, no redness, no lesions. Neck: Neck supple, non-tender, no cervical lymphadenopathy. Lungs: Clear ABI to auscultation and percussion, No accessory muscle use. Cardio: Normal S1/S2, regular rhythm, no murmurs, no JVD or carotid bruits. Abdomen: Soft, non-tender, 4 cm hard periumbilical mass palpated, peristalsis present, no guarding or rebound. Extremities: LLE swollen and tender to palpation, with good peripheral pulses Skin: No rashes, no lesions, warm to touch. Neuro: No focal neurological deficits. Psych: Cooperative, appropriate mood and effect. Objective Labs 05/24/25 03:19 05/24/25 03:19 Labs: Laboratory Results - last 24 hr 05/23/25 05/23/25 03:00 05:01 WBC 10.8 10.8 RBC 4.38 4.21 Hgb 12.7 12.2 Hct 39.7 37.8 MCV 91 90 MCH 29.0 29.0 MCHC 32.0 32.3 RDW Std Deviation 44.3 44.0 Plt Count 213 217 Neut % (Auto) 63 65 Lymph % (Auto) 22 20 [place] % (Auto) 11 11 Eos % (Auto) 2 2 Baso % (Auto) 1 1 Neut # (Auto) 6.8 7.0 Lymph # (Auto) 2.4 2.2 [place] # (Auto) 1.2 H 1.2 H Eos # (Auto) 0.2 0.2 Baso # (Auto) 0.1 0.1 Immature Gran # (Auto) 0.06 H 0.05 H Absolute Nucleated RBC 0.00 0.00 Immature Gran % 1 H 1 H Nucleated RBC % 0 0 PT 11.0 INR 1.0 APTT 25.3 Sodium 144 143 Potassium 3.6 3.7 Chloride 106 107 Carbon Dioxide 29.4 25.3 Anion Gap 9 11 BUN 14 14 Creatinine 0.9 0.8 Estim Creat Clear Calc 61.0 68.6 eGFR > 60 > 60 BUN/Creatinine Ratio 16 18 Glucose 107 H 107 H Calculated Osmolality 287 285 Calcium 9.2 9.1 Corrected Calcium 9.2 9.1 Magnesium 1.6 Total Bilirubin 0.5 0.4 AST 13 13 ALT 8 L 7 L Alkaline Phosphatase 89 88 Total Protein 7.3 7.3 Albumin 4.4 4.4 Globulin 2.9 2.9 Albumin/Globulin Ratio 1.5 1.5 Quality Measures Quality Measures VTE prophylaxis Assessment & Plan Assessment Current Active Medications: Generic Name Dose Route Start Last Admin Trade Name Freq PRN Reason Stop Dose Admin Acetaminophen 650 mg 05/23/25 04:25 Acetaminophen 325 Mg Tablet PO 06/22/25 04:24 Q6H PRN Fever >100.4 and mild pain 1-3 Hydrocodone Bitart/Acetaminophen 1 tab 05/23/25 04:25 05/23/25 05:10 Hydrocodone/Apap 5/325 Tablet PO 05/28/25 04:24 1 tab Q4HR PRN Administration PAIN SCALE 4-10(Mod-Sev Heparin Sodium/Dextrose 25,000 unit in 250 mls @ 12.002 mls/hr 05/23/25 04:30 05/23/25 05:24 Heparin In D5w Ivpb IV 06/06/25 04:29 18 units/kg/hr .[id number] CAROL 12.002 mls/hr Protocol Administration 18 UNITS/KG/HR Magnesium Sulfate 4 gm in 50 mls @ 12.5 mls/hr 05/23/25 08:07 Magnesium Sulfate Ivpb IV 05/23/25 12:06 X1 ONE Ondansetron HCl 4 mg 05/23/25 04:25 Ondansetron Inj 2 Mg/Ml Inj 2 Ml IVP 06/22/25 04:24 Q6H PRN NAUSEA OR VOMITING Protocol Plan Patient is 59-year-old F with PMH of HTN, COPD, MASH with liver cancer (in remission), MN, degenerative disc disease with multiple surgeries in the past and extensive occlusive DVT of left leg s/p IVC filter and on Eliquis was placed on observation on 05/23/2025 due to left lower extremity DVT. #Left lower extremity DVT #Hx of DVT s/p thrombectomy, IVC filter and on Eliquis Likely unprovoked, as she has her first episode on Mar 2024, and no underlying etiology was found and was placed on eliquis to be continued On Eliquis, but ran out 2 months prior and has no PCP to get refills for; has incresed LE swelling and pain LE doppler positive for extensive nonocclusive DVT in LLE and is still smoking about 5 cigerettes now, but upto 1 ppd for about 40 years. Plan: Heparin protocol Consulted Card Dr. Garsia for possible thrombectomy, appreciate reccs Transition to Eliquis after 24 hours Follow-up on morning CBC to rule out any drop in hemoglobin. #Abdominal mass #Hx liver cancer 4 cm abdominal periumbilical on R mass palpated; patient states that has been there for the past few months and has been slowly increasing but is not painful. Patient is a smoker and has history of liver cancer. Plan: Abdominal U/S ordered, results pending #Hx COPD #Current smoker Per patient history and is a current smoker. Plan: Monitor O2 Nicotine patch 14mg qday #Hx HTN Patient BP normal on admission Plan: Monitor BP #Hx MN Plan: Lipid panel in AM #Hx degenerative disc disease Plan: norco 5 q4h prn Disposition: Patient observation to med surg. Diet: regular GI prophylaxis: not indicated DVT prophylaxis: heparin drip Code: Full This case was discussed with my attending physician, Dr. Newton, and senior resident, Dr. Madden. Frankie Quinones, PGY1 Senior Resident Attestation: The patient is a overnight admission, with past medical history of hypertension, COPD, MASH with liver cancer in remission, [place], degenerative disc disorder with multiple surgeries in the past and extensive nonprovoked occlusive DVT of left leg s/p IVC filter presented with chief complaint of left lower limb swelling and pain that has been worsening for past couple of days. US Doppler of lower extremity lower extremity revealed extensive nonocclusive deep vein thrombosis throughout most of the deep venous system in the left lower extremity. We will continue the patient on heparin drip, and cardiology consultation is done for possible thrombectomy. Ultrasound abdomen was ordered as there was possible mass, and we will follow-up on the results tomorrow morning. I discussed with and supervised the international travel consultant physician involved in the care of this patient. I personally saw and examined the patient and discussed the assessment and plan with the entire medicine team, including my attending. I agree with the assessment and plan as documented above. Dominic Madden MD PGY3 Internal Medicine Attending Provider Attestation/Addendum I, Jillian Newton DO, attest that I was physically present for the guillen portions of the service and evaluated the patient with the resident and I reviewed and discussed the case with the resident and agree with the resident's findings and plans of care as documented above
[2025-05-23] MEDS: Magnesium Sulfate 4 GM Ivpb 4 GM/50 ML BAG IV (11:16)
[2025-05-23] MEDS: NICOTINE PATCH 14 MG/24 HR PATCH.TD24 TOP (11:16)
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
[2025-05-23 12:27] LABS: Partial Thromboplastin Time 87.4 Seconds (22.0-36.0)
--- NOTE | 2025-05-23 16:31 | XR_ITS ---
Examination: Abdomen sonogram, complete Date and time of exam: May 23, 2025, 1643 hours INDICATIONS: Palpable lump in the umbilical region 1 month. Technique: Multiple real-time grayscale transabdominal sonographic images of the abdomen have been obtained. Findings: Absent gallbladder Normal common bile duct Pancreatic head 2.2 cm Pancreatic duct 2 mm Aorta not enlarged Right liver 16.2 cm 26 mm liver cyst left lobe and smaller cyst Normal hepatopetal portal venous flow Patent IVC Right kidney 10.0 cm cortex 1.4 cm Left kidney 10.3 cm renal cortex 1.8 cm Moderate renal scarring Spleen 8.1 cm Solid lesion at the area of concern in the umbilical region 4.5 x 1.7 x 3.0 cm IMPRESSION: Recommend CT scan abdomen pelvis follow-up to assess the solid mass in the umbilical region 4.5 x 1.7 x 3.0 cm, differential would include lipoma
--- NOTE | 2025-05-23 20:23 | PC.NURSE ---
ptt result pending.
[2025-05-23 20:30] LABS: Partial Thromboplastin Time 64.9 Seconds (22.0-36.0)
[2025-05-24] VITALS: BP 113/77; PULSE 97; RESP 18; TEMP 36.8; O2SAT 93
[2025-05-24] MEDS: HYDROcodone/APAP 5/325 TABLET 1 TAB PO ×2 (00:04→07:49)
[2025-05-24 00:39] LABS: Amphetamine/Methamp Scrn,U Positive (Negative); Barbiturate Screen,Urine Negative (Negative); Benzodiazepines Screen,Urine Negative (Negative); Benzoylecgonine Screen, Ur Negative (Negative); Fentanyl Screen,Urine Negative (Negative); Opiate Screen,Urine Positive (Negative); THC Screen,Urine Negative (Negative)
[2025-05-24 03:50] LABS: Basophils # (Auto) 0.1 Thou/mm3 (0.0-0.2); Basophils % (Auto) 1 % (0-2.5); Eosinophils # (Auto) 0.3 Thou/mm3 (0.0-0.5); Eosinophils % (Auto) 3 % (0-10); Hematocrit 36.0 % (36.0-46.0); Hemoglobin 11.6 g/dL (12.0-16.0); Immature Granulocytes Auto 0.05 Thou/mm3 (0.00-0.00); Lymphocytes # (Auto) 2.2 Thou/mm3 (1.0-4.8); Lymphocytes % (Auto) 21 % (10-50); Mean Corpuscular HGB Conc 32.2 g/dl (31.0-37.0); Mean Corpuscular Hemoglobin 28.9 pg (25.0-35.0); Mean Corpuscular Volume 90 fL (80-100); Monocytes # (Auto) 1.2 Thou/mm3 (0.0-0.8); Monocytes % (Auto) 11 % (0-12); Neutrophils # (Auto) 6.6 Thou/mm3 (1.8-7.7); Neutrophils % (Auto) 64 % (37-80); Nucleated Red Blood Cell # 0.00 Thou/mm3 (0.00-0.00); Nucleated Red Blood Cell % 0 /100 WBC (0); Platelet Count 208 Thou/mm3 (140-440); RDW Standard Deviation 43.9 fL (36.4-46.3); Red Blood Count 4.02 Miln/mm3 (4.00-5.20); White Blood Count 10.3 Thou/mm3 (3.6-11.0)
[2025-05-24 04:00] VITALS: BP 113/57; PULSE 101; RESP 18; TEMP 36.7; O2SAT 92
[2025-05-24] MEDS: Heparin/D5w 25K 250 ML Ivpb 25,000 UNIT/250 ML BAG 10.668 UNIT IV (04:01)
[2025-05-24 04:23] LABS: Partial Thromboplastin Time 63.3 Seconds (22.0-36.0)
[2025-05-24 04:25] LABS: Albumin, Serum 4.0 gm/dL (3.4-4.8); Albumin/Globulin Ratio 1.5 (1.2-2.2); Alkaline Phosphatase 80 U/L (46-116); Anion Gap 9 (7-16); Aspartate Amino Transferase 13 U/L (0-34); BUN/Creatinine Ratio 19 Ratio (12-20); Bilirubin,Total 0.4 mg/dL (0.3-1.2); Blood Urea Nitrogen 13 mg/dL (9-23); Calcium 8.8 mg/dL (8.3-10.6); Calcium (Corrected) 8.8 mg/dL (8.5-10.1); Carbon Dioxide 26.1 mMol/L (20.0-31.0); Cardiac Risk Estimate 3.6 RATIO (3.7-5.6); Chloride 105 mMol/L (98-107); Cholesterol 145 mg/dL (132-200); Creatinine (Component) 0.7 mg/dL (0.6-1.3); Estimated Creatinine Clearance 78.4 mL/min (>60); Globulin 2.7 gm/dL (2.3-3.5); Glucose 108 mg/dL (74-106); HDL Cholesterol 40 mg/dL (40-60); LDL Cholesterol,Calculated 87 mg/dL (0-130); Magnesium 1.9 mg/dL (1.6-2.6); Osmolality,Calculated 280 (275-295); Potassium 4.3 mMol/L (3.4-5.1); Sodium 140 mMol/L (136-145); Total Protein 6.7 gm/dL (5.7-8.2); Triglycerides 90 mg/dL (30-150); eGFR > 60 See Note
[2025-05-24 04:26] LABS: Alanine Aminotransferase 8 U/L (10-49)
[2025-05-24 07:30] VITALS: BP 119/71; PULSE 104; RESP 18; TEMP 36.7; O2SAT 94
[2025-05-24] MEDS: NICOTINE PATCH 14 MG/24 HR PATCH.TD24 TOP (07:48)
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
--- NOTE | 2025-05-24 08:40 | PC.SS ---
Follow up note: On Heprin Drip for DVT.
[2025-05-24 11:33] LABS: Partial Thromboplastin Time 57.5 Seconds (22.0-36.0)
[2025-05-24 12:00] VITALS: BP 112/70; PULSE 84; RESP 18; TEMP 36.7; O2SAT 94
[2025-05-24] MEDS: APIXABAN 2.5 MG TABLET 10 MG PO (12:01)
--- NOTE | 2025-05-24 14:25 | PC.SS ---
SS met with patient regarding her d/c plan. Pt is alert/oriented. Pt was admitted for DVT LLE. Pt confirmed demographic and contact information is correct on facesheet. Pt resides with her grandson. Pt ambulates independently without assistance or DME. Pt is ok with all ADLs. Pt named her friend, Kendal Adorno medical decision maker if she is unable. Patient?s choice is to return home upon d/c. Pt states she is not diabetic and is not on dialysis. Pt states she has reached out to [facility]. Patient's tox screen was positive for meth use. Pt states she last used meth 1 week ago and uses meth couple times week. Pt states she is aware of the drug programs in [facility]. SS offered community resources and pt was receptive. Family will provide transportation home. D/C plan: Return home Next of Kin: Kiara Torrescelina, friend, phone# [phone] PCP: REPLACED BY [facility] in [place] Address: Correct on facesheet
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
--- NOTE | 2025-05-24 16:01 | PC.SS ---
SS provided pt with [facility] and [facility] brochure this morning.
== END 2025-05-24 13:33 | disposition home or self-care (01) ==
LOC: SERX 04:25 → SERHOLD 05:37 → S3SX 09:50 → S3NX 09:52
PROVIDERS: Nurse Practitioner Family; Admitting Provider Internal Medicine; Emergency Provider Emergency Medicine; Visit Provider Student in an Organized Health Care Education/Training Program
DX: I82.402 Acute embolism and thrombosis of unspecified deep veins of left lower extremity (principal); I10 Essential (primary) hypertension; J44.9 Chronic obstructive pulmonary disease, unspecified; I25.2 Old myocardial infarction; R19.05 Periumbilic swelling, mass or lump; Z85.05 Personal history of malignant neoplasm of liver
CPT/HCPCS: 36415; 76700; 80053; 80061; 80307; 83735; 85025; 85610; 85730; 93971; 96365; 96366; 99283; G0378; J1644; J3475; A9270

== ENCOUNTER 2025-05-26 19:51 | Emergency (ER) | payer MEDICAID, SELFPAY ==
[2025-05-26 19:52] VITALS: BMI 26.0
[2025-05-26 20:20] VITALS: BP 118/83; PULSE 108; RESP 20; TEMP 36.8; O2SAT 97
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
[2025-05-26] MEDS: HYDROmorphone INJ 2 MG/ML VIAL 0.5 MG IM (20:31)
[2025-05-26 20:39] VITALS: PULSE 110; RESP 19; TEMP 36.7; O2SAT 98
== END 2025-05-26 20:26 | disposition home or self-care (01) ==
LOC: SERX 20:40
PROVIDERS: Emergency Provider Emergency Medicine
DX: I82.402 Acute embolism and thrombosis of unspecified deep veins of left lower extremity (principal)
CPT/HCPCS: 96372; 99282; J1171